=== PATIENT | female | born 1950 ===

== ENCOUNTER 2024-07-30 06:29 | Day surgery (SDC) | payer MEDICARE, SELFPAY | END 2024-07-30 14:02 | disposition home or self-care (01) | LOC: GI 06:29 | PROVIDERS: ATTENDING PHYSICIAN Surgery | DX: Z12.11 Encounter for screening for malignant neoplasm of colon (principal); R19.5 Other fecal abnormalities; K64.9 Unspecified hemorrhoids; K57.30 Diverticulosis of large intestine without perforation or abscess without bleeding; D12.2 Benign neoplasm of ascending colon; Z83.719 Family history of colon polyps, unspecified | CPT/HCPCS: 45380; 88305 ==